=== PATIENT | female | born 1985 | race African-American/Black ===

== ENCOUNTER 2016-12-19 21:03 | Emergency (ER) | payer OTHER ==
[2016-12-19 22:12] LABS: BASOPHIL 0.3 % (0-2); EOSINOPHIL 0.1 % (0-5); HCT 39.2 % (37.0-47.0); HGB 13.3 g/dl (12.5-16.0); LYMPHOCYTE 27.7 % (15-48); MCH 28.2 pg (25.0-31.0); MCHC 33.9 g/dL (32.0-36.0); MCV 83.2 fL (78.0-100.0); MONOCYTE 11.4 % (0-12); MPV 9.8 fL (6.0-9.5); NEUTROPHIL 60.5 % (41-80); PLT 320 K/uL (150-400); RBC 4.71 M/uL (4.20-5.40); RDW 15.2 % (11.5-14.0)
[2016-12-19 22:29] LABS: ACETAMINOPHEN (TYLENOL) < 5.0 ug/mL (10.0-30.0); ALCOHOL (ETOH) MEDICAL NONE DETECTED; SALICYLATE < 6 ug/mL (0-300)
[2016-12-19 22:30] LABS: ALBUMIN 4.5 g/dL (3.5-5.0); BILIRUBIN - TOTAL 0.2 mg/dL (0.1-1.0); CREATININE 0.8 mg/dL (0.5-1.0); GLOBULIN (CALCULATION) 2.1 g/dL (2.2-4.2); POTASSIUM 2.9 mmol/L (3.5-5.1); TOTAL PROTEIN 6.6 g/dL (6.4-8.3)
[2016-12-19 23:18] LABS: BILIRUBIN NEGATIVE (NEGATIVE); BLOOD NEGATIVE Ery/uL (NEGATIVE); CLARITY CLEAR (CLEAR); COLOR YELLOW (YELLOW); GLUCOSE (U) NORMAL (NORMAL); KETONE (U) NEGATIVE (NEGATIVE); LEUKOCYTES NEGATIVE Leu/uL (NEGATIVE); NITRITE NEGATIVE (NEGATIVE); PROTEIN NEGATIVE (NEGATIVE); UROBILINOGEN 0.2 mg/dL (0.2-1.0); pH 5.5 (5.0-9.0)
[2016-12-19 23:29] LABS: AMPHETAMINES NEGATIVE (NEGATIVE); BENZODIAZEPINES POSITIVE (NEGATIVE); COCAINE NEGATIVE (NEGATIVE)
[2016-12-19 23:30] LABS: BARBITURATES NEGATIVE (NEGATIVE); MARIJUANA (THC) POSITIVE (NEGATIVE); METHADONE NEGATIVE (NEGATIVE); TRICYCLIC ANTIDEPRESSANT NEGATIVE (NEGATIVE)
== END 2016-12-20 01:01 | disposition other institution (70) ==
LOC: FER 21:03
PROVIDERS: Emergency Medicine
DX: T42.6X2A Poisoning by other antiepileptic and sedative-hypnotic drugs, intentional self-harm, initial encounter (principal); G40.909 Epilepsy, unspecified, not intractable, without status epilepticus; Z88.2 Allergy status to sulfonamides; Z88.5 Allergy status to narcotic agent; Z79.899 Other long term (current) drug therapy
CPT/HCPCS: 31500; 36415; 36600; 71010; 80053; 80305; 81003; 82803; 85025; 93005; 94002; 94770; G0480; J2060; J2405; J2704

== ENCOUNTER 2021-09-29 14:48 | Emergency (ER) | payer OTHER ==
[~2021-09-29 14:48] MED LIST: 8 HOUR650 MG PO; ANTIVERT25 MG PO; FIORICET1 EACH PO; MOTRIN600 MG PO; OXYCODONE HCL5 M1 PO; VIMPAT200 MG PO; ZOFRAN4 MG SL
[2021-09-29 16:02] LABS: ALBUMIN 3.9 g/dL (3.4-5.0); BILIRUBIN - TOTAL 0.5 mg/dL (0.2-1.0); BUN/CREAT RATIO (CALC) 4.4 RATIO; CREATININE 0.91 mg/dL (0.51-0.95); GLOBULIN (CALCULATION) 3.6 g/dL; POTASSIUM 3.8 mmol/L (3.5-5.1); TOTAL PROTEIN 7.5 g/dL (6.4-8.2)
[2021-09-29 16:25] LABS: BASOPHIL 0.4 % (0-2); EOSINOPHIL 0.3 % (0-5); HCT 47.1 % (37.0-47.0); HGB 15.4 g/dl (12.5-16.0); LYMPHOCYTE 52.7 % (15-48); MCH 27.8 pg (25.0-31.0); MCHC 32.7 g/dL (32.0-36.0); MONOCYTE 7.9 % (0-12); MPV 10.2 fL (6.0-9.5); NEUTROPHIL 38.6 % (41-80); NRBC 0; PLT 231 K/uL (150-400); RBC 5.54 M/uL (4.20-5.40); RDW 13.8 % (11.5-14.0); WBC 7.3 K/uL (4.0-10.5)
[2021-09-29 16:31] LABS: INR 1.05 (0.9-1.2); PROTHROMBIN TIME 13.1 SECONDS (11.8-13.4); PTT 26.4 SECONDS (24.4-34.7)
[2021-09-29] MEDS ORDERED: VIMPAT100 MG PO (18:52)
[2021-09-29] MEDS ORDERED: KLONOPIN1 MG PO (18:52)
== END 2021-09-29 19:20 | disposition home or self-care (01) ==
LOC: FER 14:48
PROVIDERS: Emergency Medicine
DX: G40.909 Epilepsy, unspecified, not intractable, without status epilepticus (principal); G43.909 Migraine, unspecified, not intractable, without status migrainosus; Z88.0 Allergy status to penicillin; Z88.6 Allergy status to analgesic agent
CPT/HCPCS: 36415; 70450; 80053; 85025; 85610; 85730; 96372; J1170; J1953; J2250; J2550; J3030; J7030